=== PATIENT | male | born 1980 | race Two or more races ===

== ENCOUNTER 2022-09-01 11:47 | Emergency (ER) | payer MEDICAID, OTHER ==
[~2022-09-01] VITALS: Ht 182.9 cm; Wt 98.9 kg
[2022-09-01 12:44] LABS: Urine Bacteria NONE SEEN /hpf (None Seen); Urine Blood Negative /uL (Negative); Urine Specific Gravity 1.014 (1.001-1.035); Urine WBC <1 /hpf (0 - 3)
[2022-09-01] MEDS ORDERED: IBUP-1455 PO (14:31)
[2022-09-01 15:26] VITALS: BP 120/69
== END 2022-09-01 15:29 | disposition home or self-care (01) ==
LOC: ER 11:47
DX: N43.3 Hydrocele, unspecified (principal)
CPT/HCPCS: 76870; 81001